=== PATIENT | male | born 2000 | race Hispanic/Latino ===

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

== ENCOUNTER 2023-10-11 13:09 | Emergency (ER) | payer MEDICAID, OTHER ==
[~2023-10-11] VITALS: Ht 172.7 cm; Wt 95.3 kg
[2023-10-11] MEDS ORDERED: ACETAMINOPHEN 500 MG TABLET PO ONE (15:00)
[2023-10-11 15:42] LABS: RAPID GROUP A STREP positive (NEGATIVE)
[2023-10-11 15:50] LABS: INFLUENZA TYPE B Negative For Type B (NEGATIVE)
[2023-10-11 15:56] VITALS: TEMP 99.5
[2023-10-11 15:57] LABS: INFLUENZA TYPE A Positive For Type A (NEGATIVE)
[2023-10-11 15:59] LABS: SARS-CoV-2, RNA, NAAT NEGATIVE SARS CoV-2 (NEGATIVE)
[2023-10-11] MEDS ORDERED: AMOX500C2 PO (17:28)
[2023-10-11] MEDS ORDERED: OSEL75 PO (17:28)
[2023-10-11] MEDS ORDERED: BENZ-39 PO (17:28)
[2023-10-11 18:08] VITALS: BP 133/80; PULSE 115; RESP 18; O2SAT 98
== END 2023-10-11 19:03 | disposition home or self-care (01) ==
LOC: EDH 13:09
DX: J10.1 Influenza due to other identified influenza virus with other respiratory manifestations (principal); J02.0 Streptococcal pharyngitis; Z20.822 Contact with and (suspected) exposure to COVID-19; Z79.899 Other long term (current) drug therapy
CPT/HCPCS: 99283; 87635; 87880; 87804 ×2; C9803